=== PATIENT | male | born 1975 | race Caucasian/White ===

== ENCOUNTER 2024-03-23 08:01 | Emergency (ER) | payer MEDICARE, SELFPAY ==
[2024-03-23 08:03] VITALS: BP 141/96
--- NOTE | 2024-03-23 09:03 | ED.GENMED ---
History of Present Illness
General
Chief Complaint: Musculo-Skeletal Complaint
Source: patient
Time Seen by Provider: 03/23/24 08:56
History of Present Illness
History of Present Illness:
48-year-old male with past medical history of ADHD, anxiety and depression presenting to the ER for evaluation of right hand injury sustained an accidental slip and fall on ice 3 days ago noting he has continued pain to the right index and little
finger with swelling. Patient is right-hand dominant. No other injury sustained. Denies any previous history of injury or surgery.
Past History
Past History
ED Past Medical History: Psychiatric
ED Past Surgical History: Orthopedic (Right ankle surgery)
Social History
Tobacco: Smoker
Alcohol: Occasional
Drug: None
Personal: Single
Living: homeless
Review of Systems
Review of Systems
All Other Systems: ROS reviewed and negative except as documented in HPI and ROS
Phy Exam
Physical Exam
Physical Exam:
GENERAL: Alert , in no apparent distress
EYE: conjunctiva clear
Head: Normocephalic atraumatic
NECK: Supple,
ENT: mmm.
LUNGS: no acute respiratory distress
NEUROLOGICAL: Alert and oriented
SKIN: Warm and dry, skin intact.
MUSCULOSKELETAL: Right hand: There is soft tissue swelling to the right index and right little finger. The swelling is mostly concentrated around the DIP of the right index finger and the PIP of the right little finger with tenderness directly in
these areas. Patient does allow for range of motion but does have pain while doing so. Remainder of extremity is otherwise warm and well-perfused.
PSYCH: Normal and appropriate interaction.
Scores
Heart Failure Risk
Heart Failure Risk Score: Not Applicable
Heart Score for Chest Pain Patients
STEMI patient?: Not applicable
Withdrawal Assessment of Alcohol
Withdrawal Assessment Completed?: Not applicable
Course
Orders/Labs/Results
Orders:
Orders
03/23/24 08:06
Finger(s)/Thumb 2 View Rt [CR Finger(s)/thumb Min 2 Vw Rt] Urgent
Comment: pinky and pointer
Reason For Exam: pain
Indicate Which Finger:: Index Finger
Hand, Right 3 View [CR Hand - Right Min 3 Views] Urgent
Comment:
Reason For Exam: pain
Vital Signs
Initial and Last Documented VS:
Initial Vital Signs
Temp Pulse Resp BP Pulse Ox
98.1 F 140 18 141/96 97
03/23/24 08:03 03/23/24 08:03 03/23/24 08:03 03/23/24 08:03 03/23/24 08:03
Last Documented Vital Signs
Temp Pulse Resp BP Pulse Ox
98.1 F 140 18 141/96 97
03/23/24 08:03 03/23/24 08:03 03/23/24 08:03 03/23/24 08:03 03/23/24 08:03
MDM/Problems Addressed
Differential Diagnosis Includes:
fracture, sprain, contusion
MDM/Problems Addressed:
48-year-old male presenting to the ER for evaluation of right index and little finger pain stemming from an accidental fall where he slipped on ice. X-ray of the digits were ordered. Plan for splinting to immobilize. Disposition pending
*Radiology
Radiology exam reviewed: preliminary read by ED provider (A avulsive injuries off of the distal phalanx of the right index finger and middle phalanx of the little finger)
*Pulse Oximetry
Patient hypoxic: no
*Critical Care Note
Total Time (30-74mins, 75-104mins- exclusive of procedures): Not Applicable
Patient Management
Escalation/DeEscalation of care consider admission/obs:
Patient has 2 a avulsive injuries as noted above. He was placed in aluminum finger splint for comfort. NSAIDs/Tylenol as needed for pain. Otherwise stable for discharge home.
ED Attending Note
-
Portions of this chart may have been created with voice recognition software.� Occasional wrong word or��sound alike� substitutions may have occurred due to the inherent limitations of voice recognition software.
Discharge Plan
Departure
Patient Disposition: Home (Routine Discharge)
Date of Disposition: 03/23/24
Time of Disposition: 09:03
Patient with high blood pressure during this ER visit?: Yes
Discharge Problem:
Fracture of phalanx of right index finger, Fracture of phalanx of right little finger
Instructions: Finger Fracture ED
Referrals:
NONE,* [Family Provider] -
Og Galolway MD [Active] - (Orthopedist- Call as needed)
Interventions
Interventions:
*Risk Screen - Suicide Last Done: 03/23/24 08:03
*General Assessment Last Done: 03/23/24 08:03
*Neglect/Abuse Screening Last Done: 03/23/24 08:03
*ED COVID-19 Vaccine History Last Done: 03/23/24 08:03
Discharge Date and Time
Print Language: [id number]
[2024-03-23 09:20] VITALS: BP 146/68
== END 2024-03-23 09:20 | disposition home or self-care (01) ==
LOC: EMR 08:01
PROVIDERS: EMERGENCY PHYSICIAN Emergency Medicine
DX: S62.630A Displaced fracture of distal phalanx of right index finger, initial encounter for closed fracture (principal); S62.626A Displaced fracture of middle phalanx of right little finger, initial encounter for closed fracture; W00.0XXA Fall on same level due to ice and snow, initial encounter; F17.200 Nicotine dependence, unspecified, uncomplicated; Z59.00 Homelessness unspecified
CPT/HCPCS: 29130 ×2; 99283; 73130; 73140